=== PATIENT | male | born 1960 | race Caucasian/White ===

== ENCOUNTER 2020-06-08 10:25 | Outpatient (CLI) | payer MEDICAID, SELFPAY ==
[2020-06-08 10:59] VITALS: BMI 28.0
--- NOTE | 2020-06-08 11:00 | NMCV_ITS ---
NM luz perf SPECT r/s* [id number] SedrickGuillaume Age: 60 Gender: M : 1960 Exam Date: 06/08/2020 11:20 Ordering Phys: Dean Del Rosario M.D ([email or web address]) Technologist: RADHA Rinaldi Exam Location: [facility] Indications: Chest pain STRESS TEST Please see separate stress [facility] for full findings IMAGE PROTOCOL Rest/Stress 1 Lexiscan Day Radiopharmaceutical Dose (mCi) Administration Site Administered by Rest: Tc-99m 10.7 IV RADHA Rinaldi Sestamibi Stress:Tc-99m 32.2 IV RADHA Rinaldi Sestamibi Rest: 08-Jun-2020 60 Discovery 630 Stress: 08-Jun-2020 45 Discovery 630 0.4mg Lexiscan. Supine position only as patient was unable to lay prone. SPECT RESULTS Technical Quality: Good Raw Data Analysis: Normal Image Corrections: No attenuation or motion correction applied Summed Stress Score: 0 Summed Rest Score: 0 Summed Difference Score: 0 PERFUSION FINDINGS There is slightly reduced uptake of radiotracer in the inferior wall both at rest and stress. This likely represents attenuation artifact. Otherwise normal perfusion. FUNCTIONAL RESULTS (calculated via Gated SPECT) Stress Image LV EF (%): 58 Stress EDV (mL):96 TID: 0.98 Stress ESV (mL):40 FUNCTIONAL FINDINGS: There is normal left ventricular systolic function. IMPRESSIONS 1. Overall normal myocardial perfusion. There is slightly reduced radiotracer uptake in inferior wall both at rest and stress which likely represents artifact. 2. Normal LV systolic function with EF of 58%. Dean Del Rosario MD (Electronically Signed) Final Date: 13 June 2020 19:03 S
--- NOTE | 2020-06-08 11:00 | ECG_ITS ---
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 Interpretive Statements NAME OF STUDY: LEXISCAN SESTAMIBI STRESS TEST INDICATION: [Chest Pain] Procedure: At the baseline, blood pressure was 109/70 mmHg with a heart rate of 64 bpm. The electrocardiogram showed normal sinus rhythm, with no significant ST-T wave changes. The Lexiscan was infused over a period of 20 seconds. A total of 0.4 mg of Lexiscan was infused. The stress phase was continued for a total of 5 minutes. Heart rate at the end of stress phase was 79 bpm, with a blood pressure of 99/59 mmHg. The EKG at the peak infusion revealed sinus rhythm with no significant ST-T wave changes. Occasional PVCs were noted. Sestamibi was injected 20 seconds after the Lexiscan infusion. Blood pressure at the end of recovery phase was 108/66 mmHg with a heart rate of 84 bpm. Conclusion: 1. Normal EKG response to Lexiscan infusion. 2. No Lexiscan induced chest pain or cardiac arrhythmia. 3. Normal blood pressure and heart rate response. 4. Sestamibi/sestamibi perfusion scan pending; see separate report. Electronically Signed On 06-15-2020 10:15:25 TRAFFIC CLERK by Dean Del Rosario M.D. [id number]
--- NOTE | 2020-06-08 12:56 | SUR.PREOP ---
Patient reports no pain or discomfort prior to the start of the procedure.
[2020-06-08] MEDS: regadenoson 0.4 Mg/5 ml Syringe IVP (12:57)
[2020-06-08 13:10] VITALS: BP 101/65; PULSE 80
== END 2020-06-08 10:26 | disposition home or self-care (01) ==
LOC: CDL 10:26
PROVIDERS: Family Provider Nurse Practitioner; PCP Physician Assistant Medical; Visit Provider Internal Medicine
DX: R07.9 Chest pain, unspecified (principal)
CPT/HCPCS: 78452; 93017; A9500; J2785

== ENCOUNTER 2023-06-13 10:00 | Emergency (ER) | payer MEDICAID, SELFPAY ==
[2023-06-13] VITALS (9 sets, daily range): BP systolic 105–125; BP diastolic 69–87; PULSE 59–70; RESP 14–18; TEMP 36.9; O2SAT 95–97; BMI 27.6
--- NOTE | 2023-06-13 10:05 | XR_ITS ---
WS: [id number] Exam: XR chest 1V portable [id number] Date/Time of Exam: 06/13/2023 10:05 AM Reason For Exam: chest pain Comparison 03/04/2019. The lungs are hyperinflated and clear. Chronic interstitial changes. Normal cardiomediastinal silhoue tte. No pleural effusions. Minimal plaque atelectasis in the LEFT base. Bony structures are unremarka ble. IMPRESSION: 1. No acute cardiopulmonary finding. 2. Mild hyperinflation.
--- NOTE | 2023-06-13 10:05 | ECG_ITS ---
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 Measurements Intervals [place] Rate: 70 P: 63 MN: 197 QRS: 85 QRSD: 105 T: 52 QT: 401 QTc: 434 Interpretive Statements SINUS RHYTHM INCOMPLETE RIGHT BUNDLE BRANCH BLOCK [90+ ms QRS DURATION, TERMINAL R IN V1/V2, 40+ ms S IN I/aVL/V4/V5/V6] Compared to ECG 03/04/2019 06:03:31 Incomplete right bundle-branch block now present First degree AV block no longer present Right-axis deviation no longer present Myocardial infarct finding no longer present Electronically Signed On 06-13-2023 15:11:22 TRANSPORTATION DISPATCHER by Geoffrey Church M.D. [id number]
[2023-06-13] MEDS: aspirin 81 mg Chew Tablet 324 MG PO (10:36)
--- NOTE | 2023-06-13 10:45 | W.ED.CHESTPA ---
HPI - Chest Pain General: Chief Complaint: Chest Pain Stated Complaint: cabool walkin/chest pressure Time Seen by Provider: 06/13/23 10:05 History of Present Illness: Patient presents to the ER with complaints of chest pain. He reports this pain is more of a pressure. He reports is worse when he is bending over. It started off and on for the last week but got worse today when he was working on a subfloor in his house. Patient has had an HI with stents in the past from Dr. Turner. Patient denies any shortness of breath nausea vomiting or diaphoresis at this time. He states it feels different than his last HI. Patient is on Plavix and simvastatin. Review of Systems General: Reports: 10 or more systems reviewed and unremarkable except in HPI and below PFSH ED PFSH: Medical History Anterior wall myocardial infarction Colon polyps Dyslipidemia Ischemic cardiomyopathy Surgical History H/O exploratory laparotomy As a child History of cholecystectomy Presence of stent in anterior descending branch of left coronary artery Status post colonoscopy Status post right inguinal hernia repair Family History Father CAD (coronary artery disease) S/P CABG (coronary artery bypass graft) Brother CAD (coronary artery disease) Social History Smoking and tobacco/nicotine status: current every day tobacco/nicotine user cigarettes Alcohol intake: never Substance/Drug Use: never Household members: spouse Marital status: service: Yes branch: [employer] Physical Exam Const: COMMON NORMALS: no acute distress, average body habitus, patient oriented x3, no limitations, healthy appearing, alert and well nourished HENMT: COMMON NORMALS: normocephalic, atraumatic, hearing grossly normal bilaterally, external ears normal, Normal external nose present, moist oral mucous membranes and oropharynx normal HEAD & SCALP: normocephalic and atraumatic NOSE: Normal external nose present EXTERNAL EAR: Yes external ears normal Neck/C-Spine: COMMON NORMALS: no JVD Chest: COMMONS NORMALS: normal inspection of the chest and normal palpation of entire chest wall Resp: COMMON NORMALS: normal respiratory effort, No retractions, No use of accessory muscles and clear to auscultation bilaterally AUSCULTATION: clear to auscultation bilaterally Cardio: COMMON NORMALS: no JVD, regular rate, regular rhythm, S1 normal heart sound present, S2 normal heart sound present, No gallops present (Cardio), No clicks present (Cardio), No murmurs present (Cardio) and No rub (Cardio) RATE: regular rate RHYTHM: regular rhythm HEART SOUNDS: S1 normal heart sound present and S2 normal heart sound present GI: COMMON NORMALS: Normal to inspection, nondistended, normoactive bowel sounds present, Soft to palpation, non-tender, No hepatosplenomegaly present and no masses PALPATION: Yes Soft to palpation and Yes No hepatosplenomegaly present : COMMON NORMALS: Yes no CVA tenderness BLADDER/KIDNEY EXAM: Yes no CVA tenderness Back/Pelvis: COMMON NORMALS: no CVA tenderness Neuro: COMMON NORMALS: patient oriented x3 SENSORIUM/ORIENTATION: Yes alert Course Vital Signs: Vital signs: Vital Signs Temperature 98.4 F 06/13/23 10:05 Pulse Rate 63 06/13/23 12:45 Respiratory Rate 14 06/13/23 12:45 Blood Pressure 118/84 06/13/23 12:45 Pulse Oximetry 96 06/13/23 12:45 Oxygen Delivery Me thod Room Air 06/13/23 10:39 MDM - Chest Pain Medical Decision Making Patient presents to the ER with chest pressure. Patient does have a history of 2 stents and HI in the past. Patient is on Plavix and simvastatin. Patient was worked up in a standard cardiac fashion with serial labs, EKGs, chest x-ray, all of which did not show any acute changes. Is felt that the patient has noncardiac chest pain at this time. Patient will be discharged home and referred back to his PCP for further evaluation testing. Differential Diagnosis Unlikely acute massive pulmonary embolism, acute respiratory failure, acute myocardial infarction, cardiac arrest or sudden cardiac Medical Records I reviewed the patient's medical records. Lab Data I reviewed the patient's lab results. 06/13/23 11:00 06/13/23 11:00 Laboratory Results WBC 7.28 10^3/uL (3.29-11.43) 06/13/23 11:00 RBC 4.31 10^6/uL (3.85-5.65) 06/13/23 11:00 Hgb 14.40 g/dL (11.27-16.99) 06/13/23 11:00 Hct 43.9 % (37-53) 06/13/23 11:00 MCV 101.9 fl (82-101) H 06/13/23 11:00 MCH 33.4 pg (27-33) H 06/13/23 11:00 MCHC 32.8 g/dL (30-55) 06/13/23 11:00 RDW 11.9 % (12.1-15.1) L 06/13/23 11:00 Plt Count 272 10^3/cmm (157-399) 06/13/23 11:00 MPV 9.4 fL (7.4-10.4) 06/13/23 11:00 Neut % (Auto) 41.6 % 06/13/23 11:00 Lymph % (Auto) 42.0 % 06/13/23 11:00 [place] % (Auto) 11.7 % 06/13/23 11:00 Eos % (Auto) 3.7 % 06/13/23 11:00 Baso % (Auto) 0.7 % 06/13/23 11:00 Neut # (Auto) 3.03 10^3/uL (1.8-7.7) 06/13/23 11:00 Lymph # (Auto) 3.1 10^3/uL (0.8-4.8) 06/13/23 11:00 [place] # (Auto) 0.9 10^3/uL (0.2-0.9) 06/13/23 11:00 Eos # (Auto) 0.3 10^3/uL (0.0-0.8) 06/13/23 11:00 Baso # (Auto) 0.1 10^3/uL (0.0-0.1) 06/13/23 11:00 Nucleated RBC % (auto) 0 % 06/13/23 11:00 Nucleated RBCs # 0.0 /100WBC 06/13/23 11:00 Sodium 138 mmol/L (136-145) 06/13/23 11:00 Potassium 4.3 mmol/L (3.5-5.1) 06/13/23 11:00 Chloride 104 mmol/L (98-107) 06/13/23 11:00 Carbon Dioxide 24 mmol/L (22-29) 06/13/23 11:00 Anion Gap 14.3 (5-19) 06/13/23 11:00 BUN 14 mg/dL (8-23) 06/13/23 11:00 Creatinine 1.0 mg/dL (0.7-1.2) 06/13/23 11:00 GFR Calculation 75.2 mL/min (90-130) L 06/13/23 11:00 Glucose 91 mg/dL (65-115) 06/13/23 11:00 Calculated Osmolality 286 mOsm/kg (285-295) 06/13/23 11:00 Calcium 9.4 mg/dL (8.5-10.5) 06/13/23 11:00 Total Bilirubin 0.5 mg/dL (0.15-1.2) 06/13/23 11:00 AST 14 U/L (0-40) 06/13/23 11:00 ALT 25 U/L (0-41) 06/13/23 11:00 Alkaline Phosphatase 86 U/L (40-130) 06/13/23 11:00 Troponin T Baseline < 6 ng/L (0-15) 06/13/23 11:00 Troponin T 120 Minute 6.35 ng/L (0-15) 06/13/23 13:25 Delta Troponin T 0.65270 ABS# (0-10) 06/13/23 13:25 Total Protein 6.7 g/dL (6.6-8.7) 06/13/23 11:00 Albumin 4.3 g/dL (3.5-5.2) 06/13/23 11:00 Globulin 2.4 g/dL (1.3-4.6) 06/13/23 11:00 All radiology interpretation(s) finalized by discharge EKG Data EKG 1: I personally reviewed and interpreted this EKG as follows: EKG interpretation date: 06/13/23 EKG interpretation time: 10:03 Prior EKG tracings: not available for review Interpretation: EKG showed ventricular rate 70 beats a minute, CT interval 197, QRS duration 105, QTc of 422, sinus rhythm, incomplete right bundle branch block, no ST-T wave changes EKG 2: I personally reviewed and interpreted this EKG as follows: EKG interpretation date: 06/13/23 EKG interpretation time: 12:29 Prior EKG tracings: available for review Interpretation: EKG showed ventricular rate 61 beats a minute, CT interval 212, QRS duration 116, QTc 445, sinus rhythm with first-degree AV block, incomplete right bundle branch block Discharge Plan Discharge Patient Disposition: Home Clinical Impression: Non-cardiac chest pain Condition: Stable Prescriptions: No Action simvastatin 40 mg tablet 40 mg PO DAILY Qty: 90 3RF aspirin 81 mg tablet,delayed release (DR/EC) 81 mg PO DAILY Qty: 90 3RF clopidogrel 75 mg tablet 75 mg PO DAILY Discharge Orders: Discharge ED (Routine); Ordered 06/13/23 Ordered By: Jamarcus Davalos Referrals: Dorian Damon DO [Primary Care Provider] - 1 week Patient Instructions: Chest Pain - Noncardiac Activity Restrictions/Additional Instructions: Evaluation in the ER did not show any acute cause of cardiac chest pain. This felt that is noncardiac in nature. Please follow-up with your family practice physician for further evaluation testing. If your pain worsens or changes please feel free to return to the ER. Coding Level of Care Code ED Community Development Director for Len Neal
[2023-06-13 11:06] LABS: Basophils # 0.1 10^3/uL (0.0-0.1); Basophils % 0.7 %; Eosinophils # 0.3 10^3/uL (0.0-0.8); Eosinophils % 3.7 %; Hematocrit 43.9 % (37-53); Lymphocytes # 3.1 10^3/uL (0.8-4.8); Mean Corpuscular HGB Conc 32.8 g/dL (30-55); Mean Corpuscular Hemoglobin 33.4 pg (27-33); Mean Corpuscular Volume 101.9 fl (82-101); Mean Platelet Volume 9.4 fL (7.4-10.4); Monocytes # 0.9 10^3/uL (0.2-0.9); Monocytes % 11.7 %; Neutrophils # 3.03 10^3/uL (1.8-7.7); Neutrophils % 41.6 %; Nucleated Red Blood Cells % 0 %; Platelet Count 272 10^3/cmm (157-399); Red Blood Count 4.31 10^6/uL (3.85-5.65); Red Cell Distribution Width 11.9 % (12.1-15.1); White Blood Count 7.28 10^3/uL (3.29-11.43)
[2023-06-13 11:25] LABS: Alanine Aminotransferase 25 U/L (0-41); Albumin Level 4.3 g/dL (3.5-5.2); Alkaline Phosphatase 86 U/L (40-130); Anion Gap 14.3 (5-19); Aspartate Amino Transferase 14 U/L (0-40); Blood Urea Nitrogen 14 mg/dL (8-23); Calcium 9.4 mg/dL (8.5-10.5); Carbon Dioxide 24 mmol/L (22-29); Chloride 104 mmol/L (98-107); Globulin 2.4 g/dL (1.3-4.6); Glomerular Filtration Rate 75.2 mL/min (90-130); Glucose 91 mg/dL (65-115); Osmolality Calculated 286 mOsm/kg (285-295); Potassium 4.3 mmol/L (3.5-5.1); Sodium 138 mmol/L (136-145); Total Bilirubin 0.5 mg/dL (0.15-1.2); Total Protein 6.7 g/dL (6.6-8.7)
[2023-06-13 11:26] LABS: Troponin(5th) Baseline < 6 ng/L (0-15)
--- NOTE | 2023-06-13 12:05 | ECG_ITS ---
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 Measurements Intervals [place] Rate: 61 P: 61 MS: 212 QRS: 79 QRSD: 116 T: 47 QT: 442 QTc: 447 Interpretive Statements SINUS RHYTHM WITH FIRST DEGREE AV BLOCK INCOMPLETE RIGHT BUNDLE BRANCH BLOCK [90+ ms QRS DURATION, TERMINAL R IN V1/V2, 40+ ms S IN I/aVL/V4/V5/V6] Compared to ECG 06/13/2023 10:03:11 First degree AV block now present Electronically Signed On 06-13-2023 15:12:35 CUT OFF MACHINE UNLOADER by Geoffrey Church M.D. [id number]
[2023-06-13 14:12] LABS: Troponin 5 2HR 6.35 ng/L (0-15); Troponin 5 2HR Delta 0.35001 ABS# (0-10)
== END 2023-06-13 14:58 | disposition home or self-care (01) ==
PROVIDERS: Emergency Provider Emergency Medicine; PCP Family Medicine
DX: R07.89 Other chest pain (principal); Z79.02 Long term (current) use of antithrombotics/antiplatelets; Z79.82 Long term (current) use of aspirin; F17.210 Nicotine dependence, cigarettes, uncomplicated; E78.5 Hyperlipidemia, unspecified; I25.2 Old myocardial infarction; I25.5 Ischemic cardiomyopathy
CPT/HCPCS: 36415; 71045; 80053; 84484; 85025; 93005; 99285

== ENCOUNTER → 2024-08-19 15:15 | Outpatient (BNVA) | payer MEDICARE, SELFPAY | PROVIDERS: PCP Family Medicine; Visit Provider Internal Medicine | DX: I25.5 Ischemic cardiomyopathy (principal); R42 Dizziness and giddiness; Z95.5 Presence of coronary angioplasty implant and graft; I25.2 Old myocardial infarction | CPT/HCPCS: 99213 ==